=== PATIENT | female | born 1945 | race Caucasian/White ===

== ENCOUNTER → 2016-08-31 | Outpatient (CLI) | payer MEDICARE, BC ==
[~2016-08-31] MED LIST: BENADRYL PO; BUPROPION HCL75 MG PO; CALCIUM; CALCIUM + D 6001 TA1 PO; CALCIUM + D3 E1 EACH PO; CALTRATE-600/VI1 TA1 PO; CALTRATE-600/VI1 TA2 PO; CELEXA PO; CITALOPRAM HBR40 MG PO; FLAX SEED OIL1000 M1; FLAX SEED OIL1000 MG PO; FUROSEMIDE40 MG PO; GLUCOSAMINE & C1 CAP PO; GLUCOSAMINE CHONDROI PO; GLUCOSAMINE/CHONDR; HYDROCHLOROTHIA25 MG PO; K-DUR20 ME1 PO; KDUR PO; LEXAPRO PO; LOPID600 MG PO; LORTAB 5/500 TA1 TA1 PO; LOSARTAN POTAS100 MG PO; MAXZIDE 75/50 T1 TAB PO; METOPROLOL SUCC25 MG PO; MULTIPLE VITAMI1 T13 PO; NABUMETONE PO; NORVASC PO; OXYGEN INH; PRAVACHOL20 MG PO; PRILOSEC20 M1 PO; PROAIR RESPICL90 MCG INH; TRAMADOL HCL50 M1 PO; TYLENOL ARTHRITIS; TYLENOL ARTHRITIS PO; VIT B 12 SL; VIT D; VIT E PO; VITAMIN D 4001 UDTAB PO; VITAMIN D31000 UNI1 PO
--- NOTE | ~2016-08-31 | MY10 ---
[facility] A Service of [facility] RADIOLOGY TEXT RESULTS PATIENT: WALDEMAR MARTINEZ LOCATION: [facility] : 47 UNIT #: [id number] AGE: [address]: TINY CONCEPCION DO SEX: F ORDER DR: [id number] [place] [id number] O MR#: [id number] Acc #: [id number] NAME: WALDEMAR MARTINEZ : 1945 SEX: F STUDY DATE/TIME: 08/31/2016 10:53 UNIT: [facility] ROOM: STUDY DESCRIPTION: MY Mammogram Screen Uni Dig Rt Attending Physician: Tiny Concepcion D.O. Referring Physician: Tiny Concepcion D.O. Ordering Physician: Tiny Concepcion D.O. Primary Care Physician: Tiny Concepcion D.O. MEDICAL IMAGING REPORT This report is preliminary unless electronic signature is present. EXAM Unilateral right digital screening mammogram 08/31/2016 [facility] HISTORY 71-year-old woman. Prior left mastectomy 1991. Personal and family history, paternal aunt. Annual screen. COMPARISON Mammograms date to 07/07/2006 with most recent screening comparison 08/16/2015. FINDINGS Digital imaging of the right breast was completed utilizing screening protocol. Review includes FDA-approved CAD device. Breast parenchyma is partially fatty replaced. There is a small nodular pattern noted in the subareolar region and upper outer quadrant. There are a few benign stable calcifications present. There is no interval occurring mass. There are no suspicious microcalcifications and no architectural deformity. IMPRESSION Stable benign unilateral right mammogram. Status post left mastectomy. Annual screening recommended. Patients over the age of 40 are entered into a reminder system with target due date for the next mammogram. A result letter will also be sent to the patient. BIRADS: 2 Benign finding. Dictated by... Shad Benedict M.D. THIS IS AN ELECTRONICALLY VERIFIED REPORT [facility] A Service of [facility] RADIOLOGY TEXT RESULTS PATIENT: WALDEMAR MARTINEZ LOCATION: [facility] : 47 UNIT #: [id number] AGE: [address]: TINY CONCEPCION DO SEX: F ORDER DR: Shad Benedict M.D. at 09/01/2016 1:24 PM Richard TD: 08/31/2016 11:38 JOB #: [id number] MEDICAL IMAGING REPORT Page 1 of 1
== END | disposition home or self-care (01) ==
LOC: SMAM 10:18
DX: Z12.31 Encounter for screening mammogram for malignant neoplasm of breast (principal); Z85.3 Personal history of malignant neoplasm of breast; Z80.3 Family history of malignant neoplasm of breast; Z90.12 Acquired absence of left breast and nipple
CPT/HCPCS: G0202